=== PATIENT | female | born 1930 | race African-American/Black ===

== ENCOUNTER 2016-12-04 16:43 | Emergency (ER) | payer MEDICARE, MEDICAID ==
[~2016-12-04 16:43] MED LIST: Sodium Chloride 0.9% 100 ML BAG ONE; Triple Antibiotic Oint 1 GM Packet ONE
[2016-12-04] MEDS ORDERED: Ketorolac Tromethamine 30 MG/ML VIAL ONE (17:42)
[2016-12-04] MEDS ORDERED: Morphine Sulfate 2 MG/ML SYRINGE ONE (17:42)
[2016-12-04] MEDS ORDERED: cefTRIAXone\\ROCEPHIN 1 GM VIAL ONE (17:42)
== END 2016-12-04 19:10 | disposition home or self-care (01) ==
LOC: MADERS 16:43
DX: L08.9 Local infection of the skin and subcutaneous tissue, unspecified (principal); E78.5 Hyperlipidemia, unspecified; E78.00 Pure hypercholesterolemia, unspecified; I10 Essential (primary) hypertension; Y29.XXXA Contact with blunt object, undetermined intent, initial encounter
CPT/HCPCS: 36415; 87040; 96365; 96367; 96375; J0696; J1885; J1956; J2270; J7050

== ENCOUNTER 2017-02-13 16:27 | Emergency (ER) | payer MEDICARE, MEDICAID ==
[2017-02-13] MEDS ORDERED: Morphine Sulfate 2 MG/ML SYRINGE ONE (17:57)
[2017-02-13 18:23] LABS: #Basophils 0.2 thou/uL (0.0-0.2); #Eosinphils 0.1 thou/uL (0.0-0.7); #Lymphocytes 1.6 thou/uL (1.20-3.40); #Monocytes 0.7 thou/uL (0.11-0.59); #Neutrophils 15.8 thou/uL (1.40-6.50); %Basophils 0.9 % (0.0-1.0); %Eosinophils 0.4 % (0.0-10.0); %Lymphocytes 8.6 % (21.0-51.0); %Monocytes 3.9 % (0.0-10.0); %Neutrophils 86.1 % (42.0-75.0); Hemoglobin 14.9 g/dL (12.0-16.0); Mean Corpuscular HGB CONC 32.7 g/dL (32.0-36.0); Mean Corpuscular Hemoglobin 29.6 pg (27.0-31.0); Mean Corpuscular Volume 90.5 fl (81.0-99.0); Mean Platelet Volume 8.2 fL (7.4-10.4); Platelet Count 229 thou/uL (130-400); RBC Distribution Width 12.5 % (11.5-14.5); Red Blood Cell (RBC) Count 5.05 mill/uL (4.20-5.40); White Blood Cell (WBC) Count 18.4 thou/uL (4.8-10.8)
[2017-02-13 18:29] LABS: INR-International Normal Ratio 0.9; PTT 26.6 SEC (22.9-36.1); Prothrombin Time 12.6 SEC (12.0-14.7)
[2017-02-13 18:47] LABS: ALT (SGPT) 19 U/L (8-55); AST (SGOT) 16 U/L (5-34); Albumin 4.1 g/dL (3.4-4.8); Alkaline Phosphatase 109 U/L (40-150); Anion Gap 18 mmol/L (10-20); BUN (Urea Nitrogen) 16 mg/dL (9.8-20.1); Bilirubin, Total Less than 0.3 mg/dL (0.2-1.2); Calc. Creatinine Clearance 0 mL/min (70-130); Calcium 9.4 mg/dL (7.8-10.44); Carbon Dioxide 22 mmol/L (23-31); Chloride 103 mmol/L (98-107); Estimated GFR-MDRD 77; Globulin 3.5 g/dL (2.4-3.5); Glucose 157 mg/dL (83-110); Potassium 3.8 mmol/L (3.5-5.1); Protein, Total 7.6 g/dL (5.8-8.1); Sodium 139 mmol/L (136-145)
[2017-02-13 18:49] LABS: Bilirubin Negative (Negative); Blood, Urine Negative (Negative); Glucose, Urine (Dipstick) Negative (Negative); Leukocyte Negative (Negative); Nitrite Negative (Negative); Protein, Urine (Dipstick) Negative (Neg-Trace); Urobilinogen 0.2 mg/dL (0.2-1.0); pH, Urine 7.5 (5.0-9.0)
[2017-02-13 18:52] LABS: Clarity Hazy (Clear); RBC/HPF 0-3 HPF (0-3)
[2017-02-13 18:54] LABS: Bacteria/HPF 1+ HPF (None Seen); Squamous Epithelial None Seen HPF (0-3); WBC/HPF 0-3 HPF (0-3)
--- NOTE | 2017-02-13 19:47 | RAD ---
AP VIEW OF THE PELVIS 02/13/17 INDICATION: Fall with right hip pain. IMPRESSION: There is a mildly displaced right hip intertrochanteric fracture. No additional fracture is grossly evident. There is diffuse osteopenia. COMMENTS: No comparisons are available. POS: [facility]
--- NOTE | 2017-02-13 19:48 | RAD ---
THREE VIEWS OF THE RIGHT FEMUR 02/13/17 INDICATION: Fall with right leg pain. FINDINGS: There is a mildly displaced right hip intertrochanteric fracture. No additional fracture is evident. There are vascular calcifications within the adjacent soft tissues. IMPRESSION: Right hip intertrochanteric fracture. POS: [facility]
--- NOTE | 2017-02-13 19:49 | RAD ---
TWO VIEWS OF THE RIGHT HIP: 02/13/17 INDICATION: Fall with hip pain. IMPRESSION: There is a mildly displaced right hip intertrochanteric fracture. No additional fracture is grossly evident. There is mild degenerative changes involving the right hip. POS: [facility]
--- NOTE | 2017-02-13 19:51 | RAD ---
AP VIEW OF THE CHEST 02/13/17 INDICATION: Preop. COMPARISON: Prior exam dated 11/08/07. IMPRESSION: No acute cardiopulmonary abnormality. COMMENTS: Heart size is upper limits of normal. No focal consolidation or pleural effusion is evident. No pneu mothorax is evident. There is mild scattered degenerative change. POS: [facility]
== END 2017-02-13 19:00 | disposition short-term general hospital (02) ==
LOC: MADERS 16:27
DX: S72.141A Displaced intertrochanteric fracture of right femur, initial encounter for closed fracture (principal); F03.90 Unspecified dementia, unspecified severity, without behavioral disturbance, psychotic disturbance, mood disturbance, and anxiety; K21.9 Gastro-esophageal reflux disease without esophagitis; E78.5 Hyperlipidemia, unspecified; I10 Essential (primary) hypertension; Z87.891 Personal history of nicotine dependence; W01.0XXA Fall on same level from slipping, tripping and stumbling without subsequent striking against object, initial encounter
CPT/HCPCS: 51702; 71010; 72170; 80053; 81001; 83880; 85025; 85610; 85730; 87086; 96374; J2270

== ENCOUNTER 2017-10-23 15:02 | Outpatient (CLI) | payer MEDICARE, OTHER | END 2017-10-23 15:03 | disposition home or self-care (01) | LOC: MADLABBHPM 15:02 | PROVIDERS: ATTEND Family Medicine | DX: J11.1 Influenza due to unidentified influenza virus with other respiratory manifestations (principal) | CPT/HCPCS: 36415 ==

== ENCOUNTER 2017-11-02 13:31 | Inpatient (IN) | payer MEDICARE, MEDICAID ==
--- NOTE | 2017-11-02 14:11 | RAD ---
[facility] CHEST: Date: 11/02/17 PROVIDED CLINICAL HISTORY: Dyspnea. FINDINGS: Comparison with 02/13/17. Cardiac and mediastinal silhouette is unchanged in appearance. Elevation of the right hemidiaphragm p ersists. There is poor definition to the left hemidiaphragm which may reflect left basilar pleural an d/or parenchymal opacity. Prominence of the pulmonary interstitium persists. There is no evidence for pneumothorax with limitations due to obscuration of portions of the lung apices by patient soft tiss ues. IMPRESSION: Poor definition to the left hemidiaphragm may reflect left basilar pleural and/or parenchymal opaciti es. Follow-up PA and lateral views of the chest are recommended. POS: [facility]
[2017-11-02 14:16] LABS: #Basophils 0.1 thou/uL (0.0-0.2); #Lymphocytes 0.8 thou/uL (1.20-3.40); #Neutrophils 15.1 thou/uL (1.40-6.50); %Basophils 0.5 % (0.0-1.0); %Eosinophils 0.1 % (0.0-10.0); %Lymphocytes 4.7 % (21.0-51.0); %Monocytes 5.7 % (0.0-10.0); %Neutrophils 89.2 % (42.0-75.0); Hemoglobin 14.9 g/dL (12.0-16.0); Mean Corpuscular HGB CONC 32.7 g/dL (32.0-36.0); Mean Corpuscular Hemoglobin 29.3 pg (27.0-31.0); Mean Corpuscular Volume 89.8 fl (81.0-99.0); Mean Platelet Volume 7.8 fL (7.4-10.4); Platelet Count 322 thou/uL (130-400); RBC Distribution Width 12.8 % (11.5-14.5); Red Blood Cell (RBC) Count 5.08 mill/uL (4.20-5.40)
[2017-11-02 14:35] LABS: ALT (SGPT) 16 U/L (8-55); AST (SGOT) 15 U/L (5-34); Albumin 3.8 g/dL (3.4-4.8); Alkaline Phosphatase 78 U/L (40-150); Anion Gap 15 mmol/L (10-20); BUN (Urea Nitrogen) 26 mg/dL (9.8-20.1); Bilirubin, Total 0.5 mg/dL (0.2-1.2); Calc. Creatinine Clearance 0 mL/min (70-130); Calcium 10.2 mg/dL (7.8-10.44); Carbon Dioxide 26 mmol/L (23-31); Chloride 110 mmol/L (98-107); Estimated GFR-MDRD 63; Globulin 4.2 g/dL (2.4-3.5); Glucose 146 mg/dL (83-110); Potassium 4.4 mmol/L (3.5-5.1); Sodium 147 mmol/L (136-145)
[2017-11-02 15:08] LABS: INR-International Normal Ratio 1.1; PTT 26.3 SEC (22.9-36.1); Prothrombin Time 14.8 SEC (12.0-14.7)
[2017-11-02 15:19] LABS: CK (CPK) 156 U/L (29-168); Lipase 7 U/L (8-78)
[2017-11-02 15:22] LABS: CKMB 1.8 ng/mL (0-6.6); Troponin I 0.015 ng/mL (< 0.028)
[2017-11-02 15:34] LABS: Bilirubin Negative (Negative); Blood, Urine Trace (Negative); Glucose, Urine (Dipstick) Negative (Negative); Leukocyte Moderate (Negative); Nitrite Positive (Negative); Protein, Urine (Dipstick) Trace mg/dL (Neg-Trace); Specific Gravity, Urine 1.015 (1.005-1.030); Urobilinogen 0.2 mg/dL (0.2-1.0)
[2017-11-02 15:43] LABS: Bacteria/HPF 2+ HPF (None Seen); Clarity Hazy (Clear); WBC/HPF 21-50 HPF (0-3)
[2017-11-02] MEDS ORDERED: Enoxaparin Sodium 40 MG/0.4 ML SYRINGE ONE (16:27)
[2017-11-02] MEDS ORDERED: Ondansetron HCl/PF 4 MG/2 ML Vial SLOW IVP PRN (17:44)
[2017-11-02] MEDS ORDERED: Loperamide HCl 2 MG CAP PO PRN ×2 (17:44)
[2017-11-02] MEDS ORDERED: HYDROcodone/Acetaminophen 5/325 mg Tablet PO PRN ×2 (17:44)
[2017-11-02] MEDS ORDERED: Acetaminophen 325 MG TAB PO PRN (17:44)
[2017-11-02] MEDS ORDERED: Bisacodyl 5 MG TAB PO PRN (17:44)
[2017-11-02] MEDS ORDERED: Pantoprazole 40 MG VIAL IVP SCH (18:00)
[2017-11-02 18:34] VITALS: BMI 24.7
[2017-11-02] MEDS ORDERED: FLU VACC TS2017-18 (>65YR) 0.5 ML SYRINGE IM ONE (19:00)
[2017-11-02] MEDS ORDERED: Guaifenesin DM 100-10/5 ML UDCUP PO PRN (19:44)
[2017-11-02] MEDS ORDERED: Mag-Al Plus 1200 MG/1200 MG/120 MG/30 ML UDCUP PO PRN (19:47)
[2017-11-02] MEDS ORDERED: Milk Of Magnesia 30 ML UDCUP PO PRN (19:47)
[2017-11-02] MEDS: Sodium Chloride 0.9% 1,000 ML IV SCH (20:02)
[2017-11-02] MEDS: Latanoprost 0.005% Ophth Soln 2.5 ml Bottle EA EYE SCH (21:10)
[2017-11-03] MEDS: Sodium Chloride 0.9% 1,000 ML IV SCH (04:53)
[2017-11-03 06:36] LABS: ALT (SGPT) 12 U/L (8-55); AST (SGOT) 14 U/L (5-34); Albumin 3.2 g/dL (3.4-4.8); Alkaline Phosphatase 63 U/L (40-150); Anion Gap 15 mmol/L (10-20); BUN (Urea Nitrogen) 21 mg/dL (9.8-20.1); Bilirubin, Total 0.5 mg/dL (0.2-1.2); Calcium 9.2 mg/dL (7.8-10.44); Carbon Dioxide 23 mmol/L (23-31); Chloride 115 mmol/L (98-107); Globulin 3.5 g/dL (2.4-3.5); Glucose 121 mg/dL (83-110); Potassium 3.9 mmol/L (3.5-5.1); Protein, Total 6.7 g/dL (6.0-8.3); Sodium 149 mmol/L (136-145)
[2017-11-03 06:52] LABS: Calc. Creatinine Clearance 47 mL/min (70-130); Estimated GFR-MDRD 77
[2017-11-03 07:08] LABS: Mean Corpuscular HGB CONC 32.9 g/dL (32.0-36.0); Mean Corpuscular Hemoglobin 29.5 pg (27.0-31.0); Mean Corpuscular Volume 89.5 fl (81.0-99.0); Mean Platelet Volume 7.9 fL (7.4-10.4); Platelet Count 300 thou/uL (130-400); RBC Distribution Width 12.5 % (11.5-14.5); Red Blood Cell (RBC) Count 4.41 mill/uL (4.20-5.40); White Blood Cell (WBC) Count 13.2 thou/uL (4.8-10.8)
[2017-11-03 07:10] LABS: Band 12 % (5-11); Lymphocytes 10 % (21-51); Metamyelocyte 1 % (0-0); Monocytes 1 % (0-10); Neutrophil 76 % (42-75)
[2017-11-03 07:14] LABS: Bilirubin Negative (Negative); Blood, Urine Small (Negative); Clarity Clear (Clear); Glucose, Urine (Dipstick) Negative (Negative); Leukocyte Trace (Negative); Nitrite Positive (Negative); Protein, Urine (Dipstick) 30 mg/dL (Neg-Trace); Urobilinogen 0.2 mg/dL (0.2-1.0); pH, Urine 5.5 (5.0-9.0)
[2017-11-03 07:15] LABS: Bacteria/HPF 4+ HPF (None Seen); Renal Epithelial 0-3 HPF (0-3); Squamous Epithelial 0-3 HPF (0-3); Transitional Epithelial 0-3 HPF (0-3); WBC/HPF 21-50 HPF (0-3)
[2017-11-03] MEDS: Amlodipine 5 MG TAB PO SCH (09:15)
[2017-11-03] MEDS: Enoxaparin Sodium 40 MG/0.4 ML SYRINGE SC SCH (09:16)
[2017-11-03] MEDS ORDERED: Sodium Chloride 0.45% 1,000 ML IV SCH (10:15)
[2017-11-03] MEDS ORDERED: Furosemide 40 MG/4 ML VIAL ONE (13:38)
[2017-11-03] MEDS ORDERED: Furosemide 40 MG/4 ML VIAL SLOW IVP SCH (14:00)
--- NOTE | 2017-11-03 14:55 | RAD ---
CHEST 1 VIEW: Date: 11/03/17 HISTORY: Change in lung status. COMPARISON: Chest 1 view from prior day. FINDINGS: Lungs are hypoinflated. Linear opacities both lung bases. Mild prominence of the hilum. No pneumothor ax. No osseous abnormality. IMPRESSION: 1. Lung hypoinflation with vascular crowding. 2. Mild prominence of the hilum bilaterally suggests pulmonary venous hypertension. POS: [facility]
[2017-11-03] MEDS: Latanoprost 0.005% Ophth Soln 2.5 ml Bottle EA EYE SCH (21:02)
--- NOTE | 2017-11-04 00:55 | HP ---
CHIEF COMPLAINT: Weak and less responsive than usual. HISTORY OF PRESENT ILLNESS: The patient is an 87-year-old black female who has a history of Alzheime r dementia and hypertension who resides in the [facility]. The patient us galeano is independent of her ADLs. The patient recently had influenza B and was treated with a 5-day course of Tamiflu 75 mg b.i.d., which she had completed. The patient was seen in followup at the [facility] on 11/01/2017. Nurses were a little worried because she seemed to be weaker than usual and not eating as well as usual and not up walking around as much as she usually does. On the she was seen, she seemed a little better, was more responsive, had been up to shower, even walking a few steps. The patient was felt to just have the fatigue and weakness as a result of the recent fl u. A CBC and basic metabolic panel were ordered. These studies came back on the morning of 11/02 an d showed a sodium of 145, potassium of 4.1, BUN was 25, previously was 15, creatinine 0.9 which kee hudson runs and GFR of 72. Her glucose was 131. Her hemoglobin and hematocrit was 13.7 and 41.8. Wh ite cell count 12,800 and platelet count 325,000. The patient's influenza nasal swab done on 10/23 w as positive for influenza B and patient completed a 5-day course of Tamiflu that was started on 10/23 . The patient was noted to be more lethargic and weaker on the morning of 11/02 and consequently was sent to the emergency room where she was evaluated. In the emergency room, her lab showed an hemogl obin and hematocrit of 14.9 and 45.6 with a white cell count of 17,000, 89% segs, 5% lymphocytes, and platelet count of 322,000. Her sodium was 147, potassium 4.4, BUN 26, creatinine 1 and GFR is 63. Her CK-MB was 1.8 and troponin I 0.015. B-type natriuretic peptide 19, glucose 146, lactic acid 1.5, creatine kinase 156 and lipase 7. Her urine showed a specific gravity of 1.020, ketones were negati ve, nitrite positive, wbc's 21-50 and rbc's 11-20 on cath specimen. Chest x-ray was performed and sh owed elevation of the right hemidiaphragm, poor definition of the left hemidiaphragm possibly related to parenchymal opacity and prominence of the pulmonary interstitium. The patient was found to be mi ldly dehydrated and alteration mental status was felt to be secondary to the dehydration and UTI, so there is also possibility that she may have a left basilar pneumonia. The patient was admitted to [facility] and started on IV antibiotics, receiving IV Levaquin and was placed on IV fluids. The patient was seen earlier on the morning of 11/03, she was awake and alert and had no complaints. She could not tell me what had been going on with her due to her dementia. The patient had a temper ature of 99.7 through the night and maintained a good blood pressure and her repeat lab this morning showed sodium of 149, potassium 3.9, BUN down to 21, creatinine 0.85 and glucose 121. Blood cultures that were drawn on admission had no growth x2. PAST MEDICAL AND SURGICAL HISTORY: Alzheimer dementia; hypertension; hyperlipidemia; impaired FBS; i ntertrochanteric fracture of the right hip, requiring open reduction and internal fixation with a elba e plate and hip screw on 02/14/2017, by Dr. Gideon Yañez. The patient also had and apwan ateral tubal ligation. PRESENT MEDICATIONS: Maalox 30 mL every 4 hours as needed, Milk of Magnesia 30 mL daily as needed, T ravatan 0.004% one drop in each eye daily, amlodipine 5 mg daily, KCl 10 mEq daily, acetaminophen 325 mg 1-2 every 4 hours as needed, Robitussin-DM as needed 10 mL every 4 hours as needed for cough and ibuprofen 800 mg every 8 hours as needed. ALLERGIES: POSSIBLE IV DYE. REVIEW OF SYSTEMS: The patient said she is feeling fine. She denied any trouble with her eye, ear, nose and throat. She denies any shortness of breath, denies any chest pain. She says she is not hav ing any abdominal pain or nausea or vomiting nor burning with urination. ADLs: Ordinarily, the sadia ent is independent of her ADLs and is able to walk, usually requires some guidance on the dressing an d help with her bathing and is able to feed herself. HABITS: Alcohol none. Tobacco none. PHYSICAL EXAMINATION: GENERAL: Shows an 87-year-old black female who is lying in bed with the head elevated. She is alert , talkative and appears in no distress. VITAL SIGNS: Shows a temperature of 99.3, pulse 75, respirations were 16, O2 sats 94% on 2 liters an d blood pressure 156/69. Her weight is 139. HEAD: Normocephalic and atraumatic. EARS: Blocked by cerumen. EYES: Pupils are equal, round, and reactive. Sclerae nonicteric. NOSE: Normal. MOUTH AND THROAT: Normal. Mucosa moist. NECK: Carotids are equal and strong, no bruits. LUNGS: Clear. There are decreased breath sounds at the left base. HEART: Regular rate. ABDOMEN: Soft. No organomegaly, nor areas of tenderness. EXTREMITIES: No edema. NEUROLOGIC: Patient is alert and is disoriented to time, place and situation. The patient has gener alized weakness, but no focal weakness. IMPRESSION: 1. Urinary tract infection. 2. Possible left basilar pneumonia. 3. Dehydration. A. Complicated by some mild prerenal azotemia. B. Complicated by some mild hypernatremia. 4. Recent influenza B. A. The nasal swab for influenza B, positive on 10/23/2017. B. Completed a 5-day course of Tamiflu 75 mg b.i.d. on in 2018. 5. Alteration in mental status secondary to the dehydration infections. 6. Alzheimer dementia. 7. Hypertension. 8. Impaired FBS. PLAN: The patient looks better this morning and is returning to her mental status baseline. She is still very, very weak, has sequelae of the recent flu and these complications from the flu that is th e possible pneumonia. We will continue the IV antibiotics. We will cautiously hydrate patient. We will change her fluids half-normal saline and reassess CBC and electrolytes in the morning. The patient is on DVT prophylax is with Lovenox.
[2017-11-04 05:55] LABS: Anion Gap 16 mmol/L (10-20); BUN (Urea Nitrogen) 14 mg/dL (9.8-20.1); Calc. Creatinine Clearance 50 mL/min (70-130); Calcium 9.2 mg/dL (7.8-10.44); Carbon Dioxide 24 mmol/L (23-31); Chloride 107 mmol/L (98-107); Estimated GFR-MDRD 82; Glucose 113 mg/dL (83-110); Potassium 3.5 mmol/L (3.5-5.1); Sodium 143 mmol/L (136-145)
[2017-11-04 06:12] LABS: #Basophils 0.2 thou/uL (0.0-0.2); #Eosinphils 0.1 thou/uL (0.0-0.7); #Lymphocytes 1.3 thou/uL (1.20-3.40); #Monocytes 0.7 thou/uL (0.11-0.59); #Neutrophils 8.7 thou/uL (1.40-6.50); %Basophils 2.2 % (0.0-1.0); %Eosinophils 0.7 % (0.0-10.0); %Lymphocytes 11.8 % (21.0-51.0); %Monocytes 6.6 % (0.0-10.0); %Neutrophils 78.8 % (42.0-75.0); Hemoglobin 13.3 g/dL (12.0-16.0); Mean Corpuscular HGB CONC 33.3 g/dL (32.0-36.0); Mean Corpuscular Hemoglobin 29.5 pg (27.0-31.0); Mean Corpuscular Volume 88.6 fl (81.0-99.0); Mean Platelet Volume 7.4 fL (7.4-10.4); Platelet Count 308 thou/uL (130-400); RBC Distribution Width 12.3 % (11.5-14.5); White Blood Cell (WBC) Count 11.1 thou/uL (4.8-10.8)
[2017-11-04] MEDS: Amlodipine 5 MG TAB PO SCH (08:55)
[2017-11-04] MEDS: Enoxaparin Sodium 40 MG/0.4 ML SYRINGE SC SCH (08:55)
[2017-11-04] MEDS ORDERED: Potassium Chloride 10 MEQ TAB PO SCH ×2 (09:00→17:00)
[2017-11-04] MEDS ORDERED: Non-Formulary Item 1 EACH (Potassium Chloride [Potassium Chloride] 10 MEQ) PO SCH (09:00)
[2017-11-04] MEDS ORDERED: cefTRIAXone\\ROCEPHIN 1 GM in Sodium Chloride 0.9% 100 ML IVPB SCH (10:00)
[2017-11-04] MEDS: guaiFENesin ER 600 MG TAB PO SCH ×3 (10:11→20:36)
--- NOTE | 2017-11-04 12:52 | PRG ---
DATE OF SERVICE: 11/04/2017 SUBJECTIVE: This morning, patient is sitting up eating her breakfast. She had no complaints this mo rning. Yesterday, late afternoon, she became very congested. Her IV fluids were stopped and she was given one dose of furosemide 40 mg IV for CHF from some fluid overload. OBJECTIVE: GENERAL: The patient is sitting up in a chair. She is alert and looks very comfortable. She has oc casional cough. VITAL SIGNS: Shows a temperature of 98.5, pulse 77, respirations 18, O2 sat 96% on 3 liters and bloo d pressure 146/69. LUNGS: Have some coarse rales at the bases and expiratory rhonchi. HEART: Regular rate. EXTREMITIES: Trace edema. LABORATORY DATA: This morning shows an hemoglobin and hematocrit of 13.3 and 39.9, white blood cell count 11,100 with 79% segs, 12% lymphocytes and platelet count of 308,000. Her sodium is down to 143 , potassium is 3.5, BUN down to 14, creatinine 0.8 and glucose 113. Her urine culture is growing E. coli from a straight catheterization with colony count of 25-50,000. Organism is resistant to the le vofloxacin, but sensitive to the ceftriaxone. Blood cultures have no growth. Chest x-ray that was p erformed yesterday when patient was short of breath showed hypoinflation with vascular crowding and m ild prominence of the hilum bilaterally suggestive of pulmonary venous hypertension. I have reviewed this film and patient has a chronic elevation of the right hemidiaphragm. There is a little bluntin g of left costophrenic angle. Heart silhouette is a little enlarged. ASSESSMENT: 1. Urinary tract infection. A. Urine culture growing on cath specimen 20 E. coli, colony count 25-50,000. Organism resistan t to Levaquin, but sensitive to ceftriaxone. Blood cultures, no growth. 2. Possible left basilar pneumonia. 3. Dehydration. A. Complicated by mild prerenal azotemia that has resolved as of 11/04/2017. B. Complicated by mild hypernatremia that has resolved as of 11/04/2017. 4. Recent influenza B. A. The nasal swab for influenza B, positive on 10/23/2017. B. Completed a 5-day course of Tamiflu 75 mg b.i.d. on in 2018. 5. Alteration in mental status secondary to the dehydration infections. A. Mental status is back to her baseline as of 11/04. 6. Alzheimer dementia. 7. Hypertension. 8. Impaired FBS. 9. Acute bronchitis. 10. Mild congestive heart failure. A. Demonstrated some pulmonary vascular congestion and cardiomegaly. B. Improved as of 11/04/2017. PLAN: The IV fluids have been stopped. The dehydration and prerenal azotemia is all resolved. We w ill switch patient from the Levaquin to ceftriaxone. I will place her on neb treatments. I will esteban ce her on a low dose diuretic use and furosemide 20 mg. We will increase her potassium supplementati on.
[2017-11-04] MEDS: Latanoprost 0.005% Ophth Soln 2.5 ml Bottle EA EYE SCH (20:34)
[2017-11-05 06:12] LABS: Anion Gap 16 mmol/L (10-20); BUN (Urea Nitrogen) 11 mg/dL (9.8-20.1); Calc. Creatinine Clearance 55 mL/min (70-130); Calcium 9.4 mg/dL (7.8-10.44); Carbon Dioxide 23 mmol/L (23-31); Chloride 104 mmol/L (98-107); Estimated GFR-MDRD Greater than 90; Glucose 113 mg/dL (83-110); Potassium 3.4 mmol/L (3.5-5.1)
[2017-11-05 06:17] LABS: #Basophils 0.3 thou/uL (0.0-0.2); #Eosinphils 0.2 thou/uL (0.0-0.7); #Neutrophils 7.9 thou/uL (1.40-6.50); %Basophils 2.5 % (0.0-1.0); %Eosinophils 1.6 % (0.0-10.0); %Lymphocytes 9.6 % (21.0-51.0); %Monocytes 9.7 % (0.0-10.0); %Neutrophils 76.7 % (42.0-75.0); Hemoglobin 13.7 g/dL (12.0-16.0); Mean Corpuscular HGB CONC 32.5 g/dL (32.0-36.0); Mean Corpuscular Hemoglobin 28.9 pg (27.0-31.0); Mean Platelet Volume 6.7 fL (7.4-10.4); Platelet Count 322 thou/uL (130-400); RBC Distribution Width 12.2 % (11.5-14.5); Red Blood Cell (RBC) Count 4.74 mill/uL (4.20-5.40); White Blood Cell (WBC) Count 10.3 thou/uL (4.8-10.8)
[2017-11-05 06:20] LABS: Sodium 140 mmol/L (136-145)
[2017-11-05] MEDS: Potassium Chloride 10 MEQ TAB PO SCH ×2 (08:23→17:55)
[2017-11-05] MEDS: Amlodipine 5 MG TAB PO SCH (08:24)
[2017-11-05] MEDS: Enoxaparin Sodium 40 MG/0.4 ML SYRINGE SC SCH (08:24)
[2017-11-05] MEDS: Furosemide 20 MG TAB PO SCH (08:24)
[2017-11-05] MEDS: guaiFENesin ER 600 MG TAB PO SCH ×2 (08:24→20:12)
[2017-11-05] MEDS ORDERED: Bisacodyl 5 MG TAB PO PRN (09:00)
--- NOTE | 2017-11-05 09:51 | PRG ---
DATE OF SERVICE: 11/05/2017 SUBJECTIVE: The patient said she feels good this morning. She has no complaint. She rested well. Joie philip said she had gotten up on her own to go to the bathroom yesterday. OBJECTIVE: The patient is lying in bed. She is alert and appears comfortable and in no distress. H er temperature is 97.3, pulse 64, respirations 24, O2 sat 98% on room air, blood pressure 116/65. He r lungs have no rales at the bases. She does have some coarse expiratory breath sounds and rhonchi, but these seemed to be less than yesterday. Her heart has regular rate. Extremities: No edema. Lab shows a H&H of 13.7 and 42.2, white blood cell count 10,300 with 77% segs, 10% lymphocytes, and a platelet count of 322,000. The sodium is down to 140, potassium 3.4, BUN 11, creatinine 0.73, GFR g reater than 90, glucose 113. ASSESSMENT: 1. Urinary tract infection. A. Urine culture growing on cath specimen 20 E. coli, colony count 25-50,000. Organism resistan t to Levaquin, but sensitive to ceftriaxone. Blood cultures, no growth. B. Asymptomatic, afebrile, has been on ceftriaxone since 11/04/2017. 2. Last x-ray showed no definite infiltrate suggestive of pneumonia. 3. Dehydration. A. Complicated by mild prerenal azotemia that has resolved as of 11/04/2017. B. Complicated by mild hypernatremia that has resolved as of 11/04/2017. 4. Recent influenza B. A. The nasal swab for influenza B, positive on 10/23/2017. B. Completed a 5-day course of Tamiflu 75 mg b.i.d. on in 2018. 5. Alteration in mental status secondary to the dehydration infections. A. Mental status is back to her baseline as of 11/04. 6. Alzheimer dementia. 7. Hypertension. 8. Impaired FBS. 9. Post-influenzal asthmatic bronchitis. A. Improved as of 11/05/2017. 10. Mild congestive heart failure. A. Demonstrated some pulmonary vascular congestion and cardiomegaly. B. Improved as of 11/05/2017. PLAN: Continue present care. The potassium is 3.4. We will increase her potassium to 20 mEq b.i.d.
[2017-11-05] MEDS: Sterile Water 10 ML VIAL FS SCH (10:13)
[2017-11-05] MEDS: cefTRIAXone\\ROCEPHIN 1 GM VIAL SLOW IVP SCH (10:13)
[2017-11-05] MEDS: Latanoprost 0.005% Ophth Soln 2.5 ml Bottle EA EYE SCH (20:17)
[2017-11-06 06:00] LABS: Anion Gap 14 mmol/L (10-20); BUN (Urea Nitrogen) 12 mg/dL (9.8-20.1); Calc. Creatinine Clearance 52 mL/min (70-130); Calcium 9.3 mg/dL (7.8-10.44); Carbon Dioxide 24 mmol/L (23-31); Chloride 107 mmol/L (98-107); Estimated GFR-MDRD 83; Glucose 128 mg/dL (83-110); Potassium 3.8 mmol/L (3.5-5.1); Sodium 141 mmol/L (136-145)
[2017-11-06] MEDS: Amlodipine 5 MG TAB PO SCH (08:13)
[2017-11-06] MEDS: Potassium Chloride 10 MEQ TAB PO SCH (08:13)
[2017-11-06] MEDS: Furosemide 20 MG TAB PO SCH (08:13)
[2017-11-06] MEDS: guaiFENesin ER 600 MG TAB PO SCH (08:13)
[2017-11-06 08:14] VITALS: BP 140/63
[2017-11-06] MEDS: Enoxaparin Sodium 40 MG/0.4 ML SYRINGE SC SCH (08:14)
--- NOTE | 2017-11-06 08:43 | DIS ---
DATE OF ADMISSION: 11/02/2017 DATE OF DISCHARGE: 11/06/2017. FINAL DIAGNOSES: Will be as follows, 1. Urinary tract infection. A. Urine culture on catheter specimen grew Escherichia coli, colony count of 25,000-50,000 with Esch erichia coli resistant to the Levaquin, but sensitive to ceftriaxone. B. Received IV ceftriaxone beginning on 11/04/2017. C. Asymptomatic and remains afebrile with return of her normal mental status as of 11/06/2017. 2. Post-influenzal asthmatic bronchitis. A. Chest x-ray showed no definite infiltrate or pneumonia. 3. Dehydration. A. Complicated by mild prerenal azotemia that has resolved as of 11/04/2017. B. Complicated by mild hypernatremia that resolved as of 11/04/2017. 4. Recent influenza B. A. Nasal swab for influenza B positive on 10/23/2017. B. Completed a 5-day course of Tamiflu 75 mg b.i.d. on 10/27/2017. 5. Alteration in mental status secondary to dehydration and urinary tract infection. A. Resolved with return to mental status. 6. Alzheimer's dementia. 7. Hypertension. 8. Mild congestive heart failure. A. Chest x-ray showed some pulmonary vascular congestion, cardiomegaly, and hilar pulmonary prominen ce. B. Resolved as of 11/05/2017. REASON FOR ADMISSION: The patient is an 87-year-old Narinder female, who has a history of hypertension, Alzheimer's dementia, who is ambulatory and [facility]. She requires someone to ma nage all her instrumental ADLs and requires someone to assist her with bathing and dressing. The pat ashely has a history of hypertension and Alzheimer's dementia. Patient, at the [facility], had an ou tbreak of influenza, and patient came down with influenza and tested positive with nasal swab for inf luenza B on 10/23/2017. She was treated with a 5-day course of Tamiflu 75 mg b.i.d. and improved. P atient then became more lethargic and seemed like she was improving, but on the morning of 11/02/2017 she was much more lethargic, much weaker, and was not eating, which is not her usual self. She was referred to the emergency room where she was evaluated. She was found to be alert, but less interact kim than she ordinarily is. Her hemoglobin was 14.9, white cell count 17,000 with 89% segs, 5% lymph ocytes. Her BUN was 26, creatinine 1, GFR 63. Her sodium was elevated to 147 and her specific gravi ty on her urine was 1.020 and her WBC is 21-50. Chest x-ray showed elevation of right hemidiaphragm and poor definition of the left hemidiaphragm and some mild cardiomegaly. There was some prominence of the pulmonary interstitium. The patient was admitted to the hospital with a diagnosis of dehydrat ion, urinary tract infection, and bronchitis or possible left basilar pneumonia, presenting with alte ration in mental status. The patient was started on IV fluids, had blood and urine culture obtained and started on IV Levaquin. HOSPITAL COURSE: The patient was continued on her IV Levaquin and fluids and antibiotics. The patie nt improved. By her second hospital day, her white cell count was dropping. She was afebrile and wa s much more interactive, but still not back to her normal mental status. Her hypernatremia resolved. The prerenal azotemia resolved. The patient became very congested and followup chest x-ray showed cardiomegaly, increased pulmonary vascular congestion, and perihilar pulmonary prominence. Patient f elt to have developed some mild congestive heart failure from the IV fluids that she had received pro bably with an underlying diastolic dysfunction. The fluids were stopped and patient was given 1 dose of IV Lasix and this was followed with oral Lasix p.o. Her breathing markedly improved, but she did have expiratory rhonchi from asthmatic bronchitis. The chest x-ray did not show any infiltrate nor any infiltrate at the left lower base. The patient had continued to improve and was felt to have pos t-influenzal asthmatic bronchitis. The urine culture grew an E. coli, colony count of 25,000-50,000 on the cath specimen. The organism was resistant to the Levaquin, but sensitive to ceftriaxone. The patient was placed on ceftriaxone IV 1 gram and completed 3 days of this while in the hospital. Her blood cultures had no growth. The patient's condition continued to improve, though she was eating g ood and was getting up ambulating on her own and seemed very stable. She continued to have some expi ratory rhonchi, which she has received the nebulization treatments. By 11/06/2017, her condition had continued improved such that it is felt that she could be managed [facility] at the [facility] on antibi otics and neb treatments. The patient had no more evidence of any failure. The patient was thought to have had an influenzal illness that had resolved, but she had developed a post-influenzal bronchit is and urinary tract infection resulting in dehydration and alteration in mental status. DIET: Regular diet. ACTIVITIES: Ad tana. MEDICATIONS: Omnicef 300 mg b.i.d. x7 days, DuoNeb by nebulizer q.i.d., acetaminophen 325 mg 2 every 4 hours as needed, Maalox 30 mL every 4 hours as needed, amlodipine 5 mg daily, Mucinex maximum stre ngth 1200 mg b.i.d. x7 days, Travatan 0.004% 1 drop in each eye at bedtime, milk of magnesia 30 mL ev day p.r.n., potassium chloride extended release 10 mEq once a day. Lab in 1 week, CBC and basic metabolic panel. Please have PT and OT evaluate patient. FOLLOWUP: The patient will be seen in 2 weeks unless there is interval problem. CODE STATUS: FULL CODE.
[2017-11-06 08:50] VITALS: TEMP 98.3
[2017-11-06] MEDS: cefTRIAXone\\ROCEPHIN 1 GM VIAL SLOW IVP SCH (10:46)
[2017-11-06] MEDS: Sterile Water 10 ML VIAL FS SCH (10:47)
== END 2017-11-06 13:00 | DRG 641 ==
LOC: MADERS 13:31 → MADMS 16:35
PROVIDERS: ADMIT Family Medicine; ATTEND Family Medicine
DX: E86.0 Dehydration (principal); E87.0 Hyperosmolality and hypernatremia; I50.9 Heart failure, unspecified; G30.9 Alzheimer's disease, unspecified; F02.80 Dementia in other diseases classified elsewhere, unspecified severity, without behavioral disturbance, psychotic disturbance, mood disturbance, and anxiety; N39.0 Urinary tract infection, site not specified; I10 Essential (primary) hypertension; E78.5 Hyperlipidemia, unspecified; Z91.041 Radiographic dye allergy status; B96.20 Unspecified Escherichia coli [E. coli] as the cause of diseases classified elsewhere; J45.909 Unspecified asthma, uncomplicated; Z16.20 Resistance to unspecified antibiotic; Z88.2 Allergy status to sulfonamides; K21.9 Gastro-esophageal reflux disease without esophagitis
CPT/HCPCS: 36415; 71045; 80048; 80053; 81001; 82553; 83605; 83690; 83880; 84484; 85025; 85610; 85730; 87040; 87077; 87086; 87186; 87807; 93005; 94760; 96365; 96372; A4216; A4353; G8996-GN-CI; G8997-GN-CI; J0696; J1650; J1940; J1956; J7050; J7620

== ENCOUNTER 2017-11-10 06:50 | Emergency (ER) | payer MEDICARE, MEDICAID ==
--- NOTE | 2017-11-10 08:46 | RAD ---
AP PELVIS 1 VIEW: HISTORY: An 87-year-old female with fall and pain. FINDINGS: A compression screw stabilizes the right hip intertrochanteric region. No evidence for an acute pelv ic fracture. Minimal degenerative changes of the SI joints and both hip joints. IMPRESSION: No acute fracture. Right hip stabilized with compression screw. POS: [facility]
--- NOTE | 2017-11-10 08:47 | RAD ---
LEFT HIP 2 VIEWS: HISTORY: An 87-year-old female with left hip pain following a fall. FINDINGS: Left hip joint arthrosis. No acute fracture or dislocation. IMPRESSION: Degenerative changes without fracture or dislocation. POS: [facility]
--- NOTE | 2017-11-10 08:50 | RAD ---
RIGHT HIP 2 VIEWS: HISTORY: Right hip pain following a fall. FINDINGS: Compression screw stabilizes the right hip intertrochanteric region. Minimal degenerative arthrosis changes of the right hip joint. No acute femoral fracture. IMPRESSION: No acute fracture. Stabilization of right hip with compression screw. Mild degenerative changes rig ht hip joint. POS: [facility]
== END 2017-11-10 08:43 ==
LOC: MADERS 06:50
DX: S70.00XA Contusion of unspecified hip, initial encounter (principal); W19.XXXA Unspecified fall, initial encounter; Y92.129 Unspecified place in nursing home as the place of occurrence of the external cause
CPT/HCPCS: 72170

== ENCOUNTER 2017-12-06 14:57 | Outpatient (CLI) | payer MEDICARE, MEDICAID ==
[2017-12-06 17:33] LABS: Bilirubin Negative (Negative); Blood, Urine Negative (Negative); Clarity Cloudy (Clear); Glucose, Urine (Dipstick) Negative (Negative); Leukocyte Moderate (Negative); Nitrite Positive (Negative); Protein, Urine (Dipstick) Trace mg/dL (Neg-Trace); Specific Gravity, Urine 1.015 (1.005-1.030); Urobilinogen 0.2 mg/dL (0.2-1.0)
[2017-12-06 18:01] LABS: RBC/HPF 0-3 HPF (0-3)
[2017-12-06 18:02] LABS: Bacteria/HPF Rare-Few HPF (None Seen); Crystals/HPF 4+ AMORPH PHOS HPF (Negative)
== END 2017-12-06 14:58 | disposition home or self-care (01) ==
LOC: MADLABBHPM 14:57
PROVIDERS: ATTEND Family Medicine
DX: R50.9 Fever, unspecified (principal)
CPT/HCPCS: 81001; 87077; 87086; 87186

== ENCOUNTER 2018-07-20 19:33 | Emergency (ER) | payer MEDICARE, MEDICAID ==
[2018-07-20] MEDS ORDERED: HYDROcodone/Acetaminophen 5/325 mg Tablet ONE (21:10)
--- NOTE | 2018-07-20 21:57 | RAD ---
LEFT ELBOW TWO VIEWS: HISTORY: Elbow injury. FINDINGS: There are no signs of fracture, dislocation, or joint effusion. IMPRESSION: No evidence of fracture. POS: [facility]
--- NOTE | 2018-07-20 22:01 | RAD ---
LEFT FOREARM TWO VIEWS: HISTORY: Fall. FINDINGS: The bones appear slightly demineralized. There are some arthritic changes of the wrist and elbow. I do not see any signs of fracture. IMPRESSION: No evidence of fracture. POS: [facility]
--- NOTE | 2018-07-20 22:02 | RAD ---
LEFT HUMERUS TWO VIEWS: HISTORY: Fall. FINDINGS: There is an obliquely oriented fracture, involving the humeral neck and proximal humeral shaft region . The fracture is slightly greater than one-half shaft width displaced. IMPRESSION: Proximal humeral neck and shaft fracture. POS: [facility]
== END 2018-07-20 23:38 ==
LOC: MADERS 19:33
DX: S42.202A Unspecified fracture of upper end of left humerus, initial encounter for closed fracture (principal); K21.9 Gastro-esophageal reflux disease without esophagitis; E78.5 Hyperlipidemia, unspecified; I10 Essential (primary) hypertension; G30.9 Alzheimer's disease, unspecified; F02.80 Dementia in other diseases classified elsewhere, unspecified severity, without behavioral disturbance, psychotic disturbance, mood disturbance, and anxiety; G47.00 Insomnia, unspecified; Z87.891 Personal history of nicotine dependence; W19.XXXA Unspecified fall, initial encounter

== ENCOUNTER 2018-07-22 08:35 | Emergency (ER) | payer MEDICARE, MEDICAID ==
--- NOTE | 2018-07-22 10:01 | RAD ---
THREE VIEWS LEFT HAND: History: Fall with left wrist pain. FINDINGS: AP, lateral, and oblique views left wrist obtained. There is no significant evidence of left wrist fractures, subluxations, or bony lesions. IMPRESSION: Normal three views left wrist. POS: [facility]
== END 2018-07-22 11:05 ==
LOC: MADERS 08:35
DX: S42.202A Unspecified fracture of upper end of left humerus, initial encounter for closed fracture (principal); K21.9 Gastro-esophageal reflux disease without esophagitis; E78.5 Hyperlipidemia, unspecified; I10 Essential (primary) hypertension; G30.9 Alzheimer's disease, unspecified; F02.80 Dementia in other diseases classified elsewhere, unspecified severity, without behavioral disturbance, psychotic disturbance, mood disturbance, and anxiety; Z87.891 Personal history of nicotine dependence; G47.00 Insomnia, unspecified; F29 Unspecified psychosis not due to a substance or known physiological condition; W19.XXXA Unspecified fall, initial encounter

== ENCOUNTER 2018-07-22 15:37 | Inpatient (IN) | payer MEDICARE, MEDICAID ==
--- NOTE | 2018-07-22 16:12 | RAD ---
CHEST 1 VIEW: Date: 07/22/18 COMPARISON: 11/03/17. HISTORY: Injury and pain. FINDINGS: Atherosclerosis of aorta. Normal cardiac silhouette. Pulmonary vessels and hilum are normal. Costophr enic angles are clear. No consolidation or mass. No pneumothorax. There is a displaced proximal left humerus fracture, incompletely evaluated. IMPRESSION: 1. Chronic changes of lung parenchyma. 2. Atherosclerosis. 3. Proximal left humerus fracture. POS: [facility]
[2018-07-22 16:49] LABS: ALT (SGPT) 12 U/L (8-55); AST (SGOT) 16 U/L (5-34); Albumin 4.2 g/dL (3.4-4.8); Alkaline Phosphatase 88 U/L (40-150); Anion Gap 14 mmol/L (10-20); BUN (Urea Nitrogen) 15 mg/dL (9.8-20.1); Bilirubin, Total 0.7 mg/dL (0.2-1.2); Calc. Creatinine Clearance 0 mL/min (70-130); Calcium 9.7 mg/dL (7.8-10.44); Carbon Dioxide 26 mmol/L (23-31); Chloride 106 mmol/L (98-107); Estimated GFR-MDRD 76; Globulin 3.4 g/dL (2.4-3.5); Glucose 126 mg/dL (83-110); Potassium 3.8 mmol/L (3.5-5.1); Protein, Total 7.6 g/dL (6.0-8.3); Sodium 142 mmol/L (136-145)
[2018-07-22 16:50] LABS: CKMB 3.6 ng/mL (0-6.6); Troponin I Less than 0.010 ng/mL (< 0.028)
[2018-07-22 16:54] LABS: Bilirubin Negative (Negative); Blood, Urine Negative (Negative); Clarity Clear (Clear); Glucose, Urine (Dipstick) Negative (Negative); Leukocyte Negative (Negative); Nitrite Negative (Negative); Protein, Urine (Dipstick) Negative (Neg-Trace); Urobilinogen 0.2 mg/dL (0.2-1.0); pH, Urine 5.5 (5.0-9.0)
[2018-07-22 16:58] LABS: Band 1 % (5-11); Eosinophils 1 % (0-10); Hemoglobin 13.4 g/dL (12.0-16.0); Lymphocytes 10 % (21-51); MDiff Complete? YES; Mean Corpuscular HGB CONC 32.5 g/dL (32.0-36.0); Mean Corpuscular Hemoglobin 29.2 pg (27.0-31.0); Mean Corpuscular Volume 89.7 fL (78.0-98.0); Mean Platelet Volume 8.3 fL (7.4-10.4); Monocytes 5 % (0-10); Neutrophil 83 % (42-75); PLT Morphology Comment Appears Adequate; Platelet Count 252 thou/uL (130-400); RBC Distribution Width 12.1 % (11.5-14.5); RBC Morphology Normal; Red Blood Cell (RBC) Count 4.58 mill/uL (4.20-5.40); White Blood Cell (WBC) Count 12.3 thou/uL (4.8-10.8)
[2018-07-22] MEDS ORDERED: Acetaminophen 325 MG TAB PO PRN (18:31)
[2018-07-22] MEDS ORDERED: Sodium Chloride 0.9% 1,000 ML IV SCH (18:31)
[2018-07-22] MEDS ORDERED: Enoxaparin Sodium 30 MG/0.3 ML SYRINGE SC SCH (18:45)
[2018-07-22] MEDS ORDERED: Mag-Al 1200 mg/1200 mg/30 ML UDCUP PO PRN (20:11)
[2018-07-22] MEDS ORDERED: Guaifenesin DM 100-10/5 ML UDCUP PO PRN (20:12)
[2018-07-22] MEDS ORDERED: Milk Of Magnesia 30 ML UDCUP PO PRN (20:12)
[2018-07-22] MEDS: risperiDONE 0.5 MG TAB PO SCH (20:43)
[2018-07-22] MEDS: Latanoprost 0.005% Ophth Soln 2.5 ml Bottle EA EYE SCH (20:45)
[2018-07-22 22:13] VITALS: BMI 27.2
[2018-07-23] MEDS: Acetaminophen 325 MG TAB PO PRN ×3 (00:44→20:50)
[2018-07-23] MEDS: Potassium Chloride 10 MEQ TAB PO SCH (09:48)
[2018-07-23] MEDS: Amlodipine 5 MG TAB PO SCH (09:48)
[2018-07-23] MEDS: risperiDONE 0.5 MG TAB PO SCH ×2 (09:49→20:49)
[2018-07-23] MEDS: Furosemide 20 MG TAB PO SCH (09:49)
[2018-07-23] MEDS: Enoxaparin Sodium 30 MG/0.3 ML SYRINGE SC SCH (09:49)
--- NOTE | 2018-07-23 15:40 | HP ---
DATE OF ADMISSION: 07/22/2018 CHIEF COMPLAINT: Repeated falls. HISTORY OF PRESENT ILLNESS: Mrs. Quintero is an 88-year-old Narinder female who resides at the [facility]. She is usually independent of her ADLs and able to walk without assistance. Requires a little assistance dressing and bathing and able to feed herself. The patient has a history of Alzheimer's d isease complicated by behavioral issues that have been controlled with risperidone and she also has h ypertension and glaucoma. The patient had a fall at the group home on 07/20/2018 without any loss of consciousness, but she did sustain a displaced fracture of the left proximal humerus. She was eitan ated with a shoulder immobilizer and sent back to the group home. 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 She returned to the emerge ncy room. X-rays of the wrist were done and no fractures were seen. The patient was returned to the group home again with fall precautions. By that afternoon, the patient fell a third time and was complaining of some low back pain. There was no loss of consciousness. The patient was evaluated on this third ER visit. She had a chest x-ray, which showed chronic lung changes, atherosclerosis and it showed the proximal left humeral fracture. The humeral fracture was at the neck of the humerus an d showed mild displacement. From her ER visit earlier this morning of 07/22/2018, the x-ray of the l t wrist 3 views was normal with no evidence of fracture. When she had the ER visit on the , sh akua also had fracture of the end of the wrist and elbow, which showed no fracture. According to the ER record, this last fall happened when she was trying to get out of the wheelchair and slipped and fel l onto her bottom and for a while complained of some low back pain, but this has resolved. Her blood pressure in the emergency room was 168/58. Later, this decreased to 115/64. Her lab work showed an H and H of 13.4 and 41.1, white cell count 12,300 with 83% segs, 1% bands, 10% lymphocytes and a esteban telet count of 252,000. Sodium 142, potassium 3.8, BUN 15, creatinine 0.86, glucose 126. Urine show s specific gravity of 1.020. The urine dip was negative for leukocytes and nitrites and glucose. EK G was done and showed a normal sinus rhythm with a rate of 86 with no ectopics. This was compared EKG of 10/2017, which looked the same. The patient had some nonspecific ST-T wave changes. The paige kruger was admitted to the hospital due to the recurrent falls. This was her third ER visit. The dileep santana was admitted and had gentle IV hydration and orthostatic blood pressures. The patient was seen early on the morning of 07/23/2018. She was feeling much better. Last evening when she was admitted, she had already pulled her IV out. At that time, her blood pressure was stabl e, so elected to leave the IV fluids out. Her vital signs had remained stable during the night. The patient had no complaints this morning and did not complain of anything hurting her. The patient epps s Alzheimer's disease and is difficult. PAST MEDICAL HISTORY: Alzheimer's disease complicated by behavioral issues and combativeness that is controlled on risperidone, hypertension, glaucoma, hospitalized in 10/2017 for urinary tract infecti on with dehydration with mild prerenal azotemia and mild hypernatremia and influenza type B. PAST SURGICAL HISTORY: Intertrochanteric fracture of the right hip requiring open reduction internal fixation with a screw and side plate on 02/14/[address] Gideon Yañez. She had a sect ion and bilateral tubal ligation. PRESENT MEDICINES: Acetaminophen 650 mg every 4 hours as needed, Maalox 30 mL every 4 hours as neede d, amlodipine 5 mg daily, furosemide 20 mg daily, Robitussin DM 10 mL every 4 hours as needed for cou gh, Xalatan 0.005% one drop in each eye at bedtime, Milk of Magnesia 30 mL daily as needed, KCl 10 mE q daily, risperidone 0.25 mg b.i.d. ALLERGIES: BACTRIM . REVIEW OF SYSTEMS: The patient said she is doing fine. Head and Neck: No complaints. Pulmonary: No shortness of breath. Cardiovascular: No chest pain. GI: No nausea or vomiting. : No compla int. HABITS: Alcohol, none. Tobacco, the patient smokes less than a pack of cigarettes a day. ADLS: The patient is usually ambulatory. Will use a walker to assist. Is able to feed herself. Re quires assistance with dressing and bathing. Has episodes of urinary and fecal incontinence. Requir es assistance with all her instrumental ADLs. SOCIAL HISTORY: The patient resides at the group home. CODE STATUS: Full code. PHYSICAL EXAMINATION: GENERAL: Shows an 88-year-old Narinder female who is sitting up in the bedside chair. She is alert and appears comfortable, in no distress. VITAL SIGNS: Her temperature is 97.4, pulse 72, respirations are 20, O2 sat 92% on room air, blood p ressure supine was 120/59. Her weight 158. HEAD: Atraumatic. EYES: Pupils are equal, round and reactive. Sclerae are nonicteric. EARS: TMs are clear. NOSE: Normal. MOUTH AND THROAT: Normal. NECK: Carotids are equal and strong. No bruits. Thyroid not enlarged. LUNGS: Clear. HEART: Regular rate. No murmurs. MUSCULOSKELETAL: Left shoulder, there is some bruising that has extravasated down into the upper arm . There is swelling around the humerus. The left arm is in a sling. Lower extremities, there is no edema. NEUROLOGIC: The patient is alert. She has no focal weakness except the left arm is in a sling and n ot able to use it due to the pain with movement from the fracture of the proximal humerus. She has d ementia and is not really truly aware of her situation and is not oriented to time. IMPRESSION: 1. Frequent falls. A. Initial fall on 07/20/2018 resulting in a fracture of the cervical neck of the left humerus with mild displacement, managed in a sling. B. 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 C. A third fall on the afternoon of 07/22/2018 where she slipped out of her wheelchair and landed on her bottom. No apparent injury. D. Etiology of the fall not suspect just to her generalized weakness and impairment from the fractur e of the left shoulder limiting her capability and balance. 2. Fracture of the left humerus involving the cervical neck with mild displacement, closed. A. Occurred from a fall on 07/20/2018. B. Managed in a sling. 3. Alzheimer's dementia. A. Complicated by behavioral issues and combativeness, is controlled. 4. Hypertension, controlled. 5. Glaucoma. 6. Generalized weakness. PLAN: The patient has been admitted to the hospital due to the frequent falls. We will have Physica l Therapy work with her to try to help check her generalized strength and help with her balance and g eneral strength. Fall precautions will be taken. We will continue her routine medication. We will continue the left arm in a sling for comfort. See orders.
[2018-07-23] MEDS: Latanoprost 0.005% Ophth Soln 2.5 ml Bottle EA EYE SCH (20:49)
[2018-07-24] MEDS: Amlodipine 5 MG TAB PO SCH (08:35)
[2018-07-24] MEDS: Enoxaparin Sodium 30 MG/0.3 ML SYRINGE SC SCH (08:36)
[2018-07-24] MEDS: Furosemide 20 MG TAB PO SCH (08:36)
[2018-07-24] MEDS: Potassium Chloride 10 MEQ TAB PO SCH (08:36)
[2018-07-24] MEDS: risperiDONE 0.5 MG TAB PO SCH ×2 (08:36→20:04)
--- NOTE | 2018-07-24 12:38 | PRG ---
DATE OF SERVICE: 07/24/2018 SUBJECTIVE: The patient said she is feeling fine. She has no complaint. Physical therapy has begun working with her, and she has walked just a very short distance. She is requiring maximum assistanc e with any transfers. OBJECTIVE: GENERAL: The patient is sitting up in her bedside chair. She is smiling, looks very comfortable. VITAL SIGNS: Her temperature is 97.4, pulse 73, respirations 18, O2 sat 94% on room air, blood press ure 160/73, earlier 122/59. LUNGS: Clear. HEART: Regular rate. EXTREMITIES: No edema. The patient's left arm is in a sling. ASSESSMENT: 1. Frequent falls. A. Initial fall on 07/20/2018 resulting in a fracture of the cervical neck of the left humerus with mild displacement, managed in a sling. B. 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 C. A third fall on the afternoon of 07/22/2018 where she slipped out of her wheelchair and landed on her bottom. No apparent injury. D. Etiology of the fall not suspect just to her generalized weakness and impairment from the fractur e of the left shoulder limiting her capability and balance. E. No recurrence of the fall, but still very weak as of 07/24/2018. 2. Fracture of the left humerus involving the cervical neck with mild displacement, closed. A. Occurred from a fall on 07/20/2018. B. Managed in a sling. C. Comfortable in her sling as of 07/24/2018. 3. Alzheimer's dementia. A. Complicated by behavioral issues and combativeness, is controlled. 4. Hypertension, controlled. 5. Glaucoma. 6. Generalized weakness. A. Persists, requiring maximum assistance with transfers and only has taken a few steps with physica l therapy as of 07/24/2018. PLAN: Continue present care. Continue sling on the left arm and continue PT.
[2018-07-24] MEDS: Acetaminophen 325 MG TAB PO PRN (20:05)
[2018-07-24] MEDS: Latanoprost 0.005% Ophth Soln 2.5 ml Bottle EA EYE SCH (20:05)
[2018-07-25] MEDS: Acetaminophen 325 MG TAB PO PRN ×2 (07:29→14:22)
[2018-07-25] MEDS: risperiDONE 0.5 MG TAB PO SCH ×2 (07:29→20:19)
[2018-07-25] MEDS: Amlodipine 5 MG TAB PO SCH (08:09)
[2018-07-25] MEDS: Furosemide 20 MG TAB PO SCH (08:09)
[2018-07-25] MEDS: Potassium Chloride 10 MEQ TAB PO SCH (08:10)
[2018-07-25] MEDS: Enoxaparin Sodium 30 MG/0.3 ML SYRINGE SC SCH (08:10)
--- NOTE | 2018-07-25 09:18 | PRG ---
DATE OF SERVICE: 07/25/2018 SUBJECTIVE: The patient has been up walking. She has been able to transfer independently, but is ju st a little unstable with the transfers. Once she is up, she is usually ambulatory, will not use her walker, has been wandering the halls some, did not sleep in a room last night, but was at the nurses ' station in a wheelchair. This morning she was up at a seat and chairs near the outside door with p hysical therapy accompanying her. The patient said she was feeling good. She had no complaints. Sh akua said her left shoulder was feeling better. OBJECTIVE: The patient is alert, appears very comfortable in no distress. Her temperature is 97.2, pulse 88, respirations 18, O2 saturation 98% on room air, blood pressure 129/87. Lungs are clear. H eart, regular rate. Extremities, no edema. The patient's left arm is in a sling. ASSESSMENT: 1. Frequent falls. A. Initial fall on 07/20/2018 resulting in a fracture of the cervical neck of the left humerus with mild displacement, managed in a sling. B. 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 C. A third fall on the afternoon of 07/22/2018 where she slipped out of her wheelchair and landed on her bottom. No apparent injury. D. Etiology of the fall not suspect just to her generalized weakness and impairment from the fractur e of the left shoulder limiting her capability and balance. E. No recurrence of falls. Strength improving, ambulating now without an assistive device, refused to use a walker, a little unstable on transfers as of 07/25/2018. 2. Fracture of the left humerus involving the cervical neck with mild displacement, closed. A. Occurred from a fall on 07/20/2018. B. Managed in a sling. C. Comfortable in her sling as of 07/25/2018. 3. Alzheimer's dementia. A. Complicated by behavioral issues and combativeness, is controlled. B. Complicated by some wandering as of 07/25/2018. 4. Hypertension, controlled. 5. Glaucoma. 6. Generalized weakness. A. Improved, ambulating without an assistive device, refused to use walker as of 07/25/2018. PLAN: We will continue physical therapy today and then probably tomorrow discharge her back to the [facility] with physical therapy and fall precautions.
[2018-07-25] MEDS: Latanoprost 0.005% Ophth Soln 2.5 ml Bottle EA EYE SCH (20:19)
[2018-07-26] MEDS: Amlodipine 5 MG TAB PO SCH ×2 (08:46→12:06)
[2018-07-26] MEDS: Potassium Chloride 10 MEQ TAB PO SCH ×2 (08:47→12:07)
[2018-07-26] MEDS: Furosemide 20 MG TAB PO SCH ×2 (08:47→12:06)
[2018-07-26] MEDS: risperiDONE 0.5 MG TAB PO SCH ×2 (08:47→12:07)
[2018-07-26] MEDS: Enoxaparin Sodium 30 MG/0.3 ML SYRINGE SC SCH (08:48)
[2018-07-26 09:29] VITALS: TEMP 97.5
--- NOTE | 2018-07-26 10:59 | DIS ---
FINAL DIAGNOSES: 1. Frequent falls. A. Initial fall on 07/20/2018 resulting in a fracture of the cervical neck of the left humerus with mild displacement, managed in a sling. B. 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 C. A third fall on the afternoon of 07/22/2018 where she slipped out of her wheelchair and landed on her bottom. No apparent injury. D Etiology of falls secondary to generalized weakness with increased secondary to recent fracture of the left proximal humerus. E. No recurrence of falls. Strength improved. Ambulating now without an assistive device, refuses to use a walker. Transferring much better on her own as of 07/26/2018. 2. Fracture of the left humerus involving the cervical neck with mild displacement, closed. A. Occurred from a fall on 07/20/2018. B. Managed in a sling. C. Comfortable in her sling as of 07/26/2018. 3. Alzheimer's dementia. A. Complicated by behavioral issues and combativeness, is controlled. B. Complicated by some wandering as of 07/25/2018. 4. Hypertension, controlled. 5. Glaucoma. 6. Generalized weakness. A. Improved, ambulating without an assistive device, refused to use walker as of 07/25/2018. REASON FOR ADMISSION: The patient is an 88-year-old Narinder female who has a history of hypertension, Alzheimer disease complicated by behavioral issues with intermittent combativeness, which has been co ntrolled and wandering. She also has a history of hypertension and glaucoma. [facility] and is able to assist with all her ADLs. The patient ordinarily is amb[facility] with [facility]. The patient had a fall on 07/20/2018 that resulted in a fracture of the proxima l left humerus with very mild displacement that was managed with a sling. She was sent back to the [facility] and then she had a subsequent fall on 07/22/2018 with no loss of consciousness. She was complaining of pain in her left wrist. She was sent back to the emergency room. X-rays of the wrist showed no fracture. She again [facility] with [facility] and by that a fternoon she slipped out of her chair onto her buttock and was complaining of some pain in her back. She returned to the emergency room, she did not have any tenderness on her back exam and was no long er complaining of her back. She was evaluated in the emergency room and her H&H was 13.4 and 41.1, c reatinine 0.86, glucose was 126. Urinalysis showed no evidence of urinary tract infection. EKG show ed a normal sinus rhythm with a rate of 86. The patient had some nonspecific ST-T wave changes. EKG was unchanged from the one in 10/2017. She was admitted to the hospital for the repeated falls. He r neurologic exam other than the evident dementia showed no focal weakness. Her vital signs were sta ble. She initially was started on IV fluids just to make sure she was adequately hydrated in the [place] nt these falls were in any way caused by orthostasis. Patient pulled the IV out and did not want thi s restarted. Since her vitals were stable and her pressures were normal it was opted to leave this o ut. HOSPITAL COURSE: The patient was watched in the hospital and had no subsequent falls. Fall precauti ons were taken. Physical therapy worked with her. Initially she seemed very weak and just got up on ly with maximum assistance and only could take a few steps. She quickly improved to where she was ge tting up out of her chair on her own with no assistance, was a little unstable and was ambulating in the hallway without an assistive device. Physical therapy worked with her and she was walking up to 200 feet just with a caregiver for standby assistance. She was transferring with no assistance. The patient had no subsequent falls. Her little instability with transfer markedly improved. She did h ave episodes due to her dementia where she would try wandering the halls and she did not sleep well a t night, often would sit in a wheelchair in the nurse's station and then sleep in the reclamation furnace operator h ours. By 07/26/2018, her condition was stable. She has had no subsequent fall. Her left arm was ke pt in a sling and she seemed to be very comfortable from the fracture of the proximal humerus. This will be managed with a sling and then gradual range of motion exercises, initially starting with the wrist and the elbow then progress to the shoulder after 2-3 weeks. By 07/26/2018 her condition was s table and it was felt that she could now [facility]. Her vital signs remain ed stable. Blood pressure showed good control. DIET: Regular diet. No added salt. ACTIVITIES: Up in a chair as tolerated. Ambulate suggested with assistance if she will allow, will arrange for PT and OT. A sling on the left arm at all times. Also PT and OT for strengthening exerc ise, gait training and general range of motion exercise of the left arm, at this point of the wrist a nd elbow and in 2 or 3 weeks may progress to the shoulder. MEDICATIONS: Tylenol 650 mg every 4 hours as needed, Maalox 30 mL every 4 hours as needed, risperido ne 0.25 mg b.i.d., Milk of Magnesia 30 mL daily p.r.n., amlodipine 5 mg daily, Latanoprost 0.005% a d rop in each eye at bedtime, furosemide 40 mg daily, KCl 10 mEq daily. CODE STATUS: Full code. FOLLOWUP: The patient will be seen in followup in 2 weeks.
[2018-07-26 12:08] VITALS: BP 132/97
== END 2018-07-26 13:02 | DRG 560 ==
LOC: MADERS 15:37 → MADMS 17:16
PROVIDERS: ADMIT Family Medicine; ATTEND Family Medicine
DX: S42.292D Other displaced fracture of upper end of left humerus, subsequent encounter for fracture with routine healing (principal); F02.81 Dementia in other diseases classified elsewhere, unspecified severity, with behavioral disturbance; R29.6 Repeated falls; Z91.81 History of falling; G30.9 Alzheimer's disease, unspecified; I10 Essential (primary) hypertension; H40.9 Unspecified glaucoma; S60.212D Contusion of left wrist, subsequent encounter; R53.1 Weakness; K21.9 Gastro-esophageal reflux disease without esophagitis; E78.5 Hyperlipidemia, unspecified; E87.6 Hypokalemia; F29 Unspecified psychosis not due to a substance or known physiological condition; G47.00 Insomnia, unspecified; F22 Delusional disorders; Z87.891 Personal history of nicotine dependence
CPT/HCPCS: 36415; 51701; 71045; 80053; 81003; 82553; 83605; 84484; 85025; 87040; 93005; 94760; A4353; G8978-GP-CM; G8979-GP-CJ; G8987-GO-CM; G8988-GO-CI; J1650

== ENCOUNTER 2018-10-26 02:05 | Emergency (ER) | payer MEDICARE, MEDICAID ==
--- NOTE | 2018-10-26 08:39 | RAD ---
LEFT HIP RADIOGRAPHS 2 VIEWS: Date: 10/26/18 PROVIDED CLINICAL HISTORY: Pain. FINDINGS: Comparison with 11/10/17. There is no evidence for fracture or other acute osseous abnormality. If there is persistent clinical concern, conservative management and follow-up imaging are advised. IMPRESSION: As above. POS: LUDY
== END 2018-10-26 02:55 ==
LOC: MADERS 02:05
DX: M25.552 Pain in left hip (principal); K21.9 Gastro-esophageal reflux disease without esophagitis; E78.5 Hyperlipidemia, unspecified; I10 Essential (primary) hypertension; G30.9 Alzheimer's disease, unspecified; F02.80 Dementia in other diseases classified elsewhere, unspecified severity, without behavioral disturbance, psychotic disturbance, mood disturbance, and anxiety; F32.9 Major depressive disorder, single episode, unspecified; G47.00 Insomnia, unspecified; Z87.891 Personal history of nicotine dependence; W19.XXXA Unspecified fall, initial encounter

== ENCOUNTER 2019-02-22 23:44 | Outpatient (CLI) | payer MEDICARE, MEDICAID ==
[2019-02-23 00:49] LABS: Bilirubin Small (Negative); Blood, Urine Moderate (Negative); Clarity Turbid (Clear); Glucose, Urine (Dipstick) Negative (Negative); Leukocyte Large (Negative); Nitrite Positive (Negative); Protein, Urine (Dipstick) 100 mg/dL (Neg-Trace); Specific Gravity, Urine 1.025 (1.005-1.030); pH, Urine 5.5 (5.0-9.0)
[2019-02-23 00:53] LABS: Bacteria/HPF 4+ HPF (None Seen); Yeast-All Forms 1+ HPF (None Seen)
== END 2019-02-22 23:45 | disposition home or self-care (01) ==
LOC: MADLAB 23:44
PROVIDERS: ATTEND Family Medicine
DX: M54.5 Low back pain (principal)
CPT/HCPCS: 81001; 87077; 87086; 87186